=== PATIENT | male | born 2000 | race African-American/Black ===

== ENCOUNTER 2023-02-13 17:10 | Inpatient (IN) | payer OTHER ==
[2023-02-13 18:06] VITALS: BMI 22.9
[2023-02-13] MEDS ORDERED: DICYCLOMINE HCL 10 MG CAPSULE PO PRN (20:00)
[2023-02-13] MEDS ORDERED: BENZONATATE 200 MG CAPSULE PO PRN (20:00)
[2023-02-13] MEDS ORDERED: MAGNESIUM HYDROX 2400MG/30ML ORAL SUSPENSION 30 ML CUP PO PRN (20:00)
[2023-02-13] MEDS ORDERED: methaDONE HCL 10 MG TABLET (FOR DETOX USE ONLY) PO ONE (20:00)
[2023-02-13] MEDS ORDERED: guaiFENesin 600 MG TABLET.ER (FP) PO PRN (20:00)
[2023-02-13] MEDS ORDERED: BISMUTH SUBSALICYLATE 524 MG/30 ML PO PRN (20:00)
[2023-02-13] MEDS ORDERED: IBUPROFEN 400 MG TABLET (FP) PO PRN (20:00)
[2023-02-13] MEDS ORDERED: LOPERAMIDE HCL 2 MG CAPSULE PO PRN (20:00)
[2023-02-13] MEDS ORDERED: MAG HYDROX/AL HYDROX/SIMETH 30 ML UNIT-DOSE CUP PO PRN (20:00)
[2023-02-13] MEDS ORDERED: NALOXONE HCL (KLOXXADO) 8 MG SPRAY NS PRN (20:00)
[2023-02-13] MEDS ORDERED: BENZOCAINE/MENTHOL (CHLORASEPTIC ) LOZENGE MM PRN (20:00)
[2023-02-13] MEDS ORDERED: ONDANSETRON *ODT* 4 MG TABLET SL PRN (20:00)
[2023-02-13] MEDS ORDERED: POLYETHYLENE GLYCOL (HEALTHYLAX) 3350 17 GM PACKET PO PRN (20:00)
[2023-02-13] MEDS ORDERED: NALOXONE HCL 0.4 MG/ML VIAL IM PRN (20:00)
[2023-02-14] MEDS ORDERED: IBUPROFEN 600 MG TABLET (FP) PO ONE (00:19)
[2023-02-14] MEDS: IBUPROFEN 600 MG TABLET (FP) PO PRN ×2 (00:21→19:12)
[2023-02-14] MEDS: MELATONIN 5 MG TABLETS PO SCH ×2 (02:48→22:14)
[2023-02-14] MEDS: THIAMINE HCL 100 MG TABLET (FP) PO SCH ×2 (02:49→22:14)
[2023-02-14] MEDS: cloNIDine HCL 0.1 MG TABLET PO PRN ×2 (02:54→22:16)
[2023-02-14] MEDS: METHOCARBAMOL 500 MG TABLET PO PRN ×2 (02:54→19:12)
[2023-02-14] MEDS: NICOTINE 14 MG/24 HOURS TOPICAL PATCH TD SCH (10:13)
[2023-02-14] MEDS: PRENATAL VITAMINS W/ FOLIC ACID TABLET (FP) PO SCH (10:13)
[2023-02-14] MEDS: ACETAMINOPHEN 325 MG TABLET (FP) PO PRN ×2 (10:14→22:16)
[2023-02-14 11:06] LABS: HEMATOCRIT 34.6 % (35.4-49); HEMOGLOBIN 11.7 GM/dL (11.7-16.9); MCH 30.6 pg (25.7-33.7); MCHC 33.9 g/dl (32.0-35.9); MEAN CELL VOLUME 90.5 fl (80-96); MEAN PLT VOLUME 8.1 fl (7.5-11.1); PLATELET COUNT 357 10^3/uL (134-434); RBC 3.82 M/mm3 (4.00-5.60); RDW 13.7 % (11.9-15.9); WHITE BLOOD COUNT 9.7 K/mm3 (4.0-10.0)
[2023-02-14 11:13] LABS: POTASSIUM 4.3 mmol/L (3.5-5.1)
[2023-02-14 11:25] LABS: BLOOD UREA NITROGEN 8.6 mg/dL (7-18)
[2023-02-14 11:26] LABS: BILIRUBIN,TOTAL 0.2 mg/dL (0.2-1); CALCIUM 8.5 mg/dL (8.5-10.1); CREATININE 0.7 mg/dL (0.55-1.3)
[2023-02-14 11:27] LABS: TOT PROT 6.2 g/dl (6.4-8.2)
[2023-02-14 12:13] LABS: HIV INTERPRETATION NEGATIVE (NEGATIVE)
[2023-02-14] MEDS: NICOTINE POLACRILEX 2 MG GUM BUC PRN (22:17)
[2023-02-15] MEDS ORDERED: methaDONE HCL 10 MG TABLET (FOR DETOX USE ONLY) PO ONE (10:00)
[2023-02-15] MEDS: NICOTINE 14 MG/24 HOURS TOPICAL PATCH TD SCH (10:25)
[2023-02-15] MEDS: PRENATAL VITAMINS W/ FOLIC ACID TABLET (FP) PO SCH (10:28)
[2023-02-15] MEDS: METHOCARBAMOL 500 MG TABLET PO PRN ×2 (10:28→17:47)
[2023-02-15] MEDS: IBUPROFEN 600 MG TABLET (FP) PO PRN (10:28)
[2023-02-15] MEDS: LIDOCAINE 5% TOPICAL PATCH TP SCH (12:39)
[2023-02-15] MEDS: NICOTINE POLACRILEX 2 MG GUM BUC PRN ×2 (12:46→17:50)
[2023-02-15] MEDS: diazePAM 5 MG TABLET PO PRN ×2 (17:46→22:16)
[2023-02-15] MEDS: ACETAMINOPHEN 325 MG TABLET (FP) PO PRN (17:47)
[2023-02-15] MEDS: MELATONIN 5 MG TABLETS PO SCH (22:13)
[2023-02-15] MEDS: LIDOCAINE PATCH REMOVAL MC SCH (22:14)
[2023-02-15] MEDS: THIAMINE HCL 100 MG TABLET (FP) PO SCH (22:14)
[2023-02-15] MEDS: cloNIDine HCL 0.1 MG TABLET PO PRN (23:18)
[2023-02-16] MEDS: IBUPROFEN 600 MG TABLET (FP) PO PRN ×2 (05:48→17:23)
[2023-02-16] MEDS: PRENATAL VITAMINS W/ FOLIC ACID TABLET (FP) PO SCH (10:36)
[2023-02-16] MEDS: ACETAMINOPHEN 325 MG TABLET (FP) PO PRN ×2 (10:38→22:12)
[2023-02-16] MEDS: LIDOCAINE 5% TOPICAL PATCH TP SCH (10:38)
[2023-02-16] MEDS: NICOTINE 14 MG/24 HOURS TOPICAL PATCH TD SCH (10:48)
[2023-02-16] MEDS: diazePAM 5 MG TABLET PO PRN ×2 (13:50→22:11)
[2023-02-16] MEDS: NICOTINE POLACRILEX 2 MG GUM BUC PRN (15:19)
[2023-02-16] MEDS: METHOCARBAMOL 500 MG TABLET PO PRN (17:24)
[2023-02-16] MEDS: MELATONIN 5 MG TABLETS PO SCH (22:12)
[2023-02-16] MEDS: LIDOCAINE PATCH REMOVAL MC SCH (22:14)
[2023-02-16] MEDS: THIAMINE HCL 100 MG TABLET (FP) PO SCH (22:14)
[2023-02-17] MEDS: IBUPROFEN 600 MG TABLET (FP) PO PRN ×2 (05:17→15:29)
[2023-02-17] MEDS: METHOCARBAMOL 500 MG TABLET PO PRN ×3 (05:18→22:12)
[2023-02-17] MEDS ORDERED: methaDONE HCL 10 MG TABLET (FOR DETOX USE ONLY) PO ONE (10:00)
[2023-02-17] MEDS: PRENATAL VITAMINS W/ FOLIC ACID TABLET (FP) PO SCH (10:24)
[2023-02-17] MEDS: ACETAMINOPHEN 325 MG TABLET (FP) PO PRN ×2 (10:24→22:12)
[2023-02-17] MEDS: LIDOCAINE 5% TOPICAL PATCH TP SCH (10:26)
[2023-02-17] MEDS: NICOTINE 14 MG/24 HOURS TOPICAL PATCH TD SCH (10:26)
[2023-02-17] MEDS: NICOTINE POLACRILEX 2 MG GUM BUC PRN (15:30)
[2023-02-17] MEDS: LIDOCAINE PATCH REMOVAL MC SCH (22:10)
[2023-02-17] MEDS: THIAMINE HCL 100 MG TABLET (FP) PO SCH (22:12)
[2023-02-17] MEDS: MELATONIN 5 MG TABLETS PO SCH (22:12)
[2023-02-18] MEDS: IBUPROFEN 600 MG TABLET (FP) PO PRN (06:01)
[2023-02-18] MEDS: diazePAM 5 MG TABLET PO PRN (06:03)
[2023-02-18] MEDS: METHOCARBAMOL 500 MG TABLET PO PRN (06:05)
[2023-02-18 09:36] VITALS: BP 118/60; PULSE 68; RESP 17; TEMP 98.1
[2023-02-18] MEDS: PRENATAL VITAMINS W/ FOLIC ACID TABLET (FP) PO SCH (10:22)
[2023-02-18] MEDS: LIDOCAINE 5% TOPICAL PATCH TP SCH (10:22)
[2023-02-18] MEDS: ACETAMINOPHEN 325 MG TABLET (FP) PO PRN (10:23)
[2023-02-18] MEDS: NICOTINE 14 MG/24 HOURS TOPICAL PATCH TD SCH (10:26)
== END 2023-02-18 12:26 | disposition home or self-care (01) | DRG 773 ==
LOC: YASAS 17:10 → Y6N 02-14 01:47
PROVIDERS: ADMIT Allergy & Immunology; ATTEND Allergy & Immunology
PROC: HZ2ZZZZ Detoxification Services for Substance Abuse Treatment (ICD-10-PCS; principal; 2023-02-14)
DX: F11.23 Opioid dependence with withdrawal (principal); F14.20 Cocaine dependence, uncomplicated; F17.210 Nicotine dependence, cigarettes, uncomplicated; F43.10 Post-traumatic stress disorder, unspecified; F32.A Depression, unspecified; F41.9 Anxiety disorder, unspecified; Z56.0 Unemployment, unspecified; Z59.00 Homelessness unspecified
CPT/HCPCS: 36415; 80053; 85027; 86780; 87389; 93005; 93010; C9803-CS; U0003; U0005

== ENCOUNTER 2023-08-16 18:18 | Inpatient (IN) | payer OTHER ==
[2023-08-16 20:04] VITALS: RESP 17; BMI 22.1
[2023-08-16] MEDS ORDERED: METHOCARBAMOL 500 MG TABLET PO PRN (21:03)
[2023-08-16] MEDS ORDERED: NICOTINE POLACRILEX 2 MG GUM BUC PRN (21:03)
[2023-08-16] MEDS ORDERED: BENZOCAINE/MENTHOL (CHLORASEPTIC ) LOZENGE MM PRN (21:03)
[2023-08-16] MEDS ORDERED: IBUPROFEN 400 MG TABLET (FP) PO PRN (21:03)
[2023-08-16] MEDS ORDERED: P-EPHED 60MG/TRIPROLIDI 2.5MG TABLET PO PRN (21:03)
[2023-08-16] MEDS ORDERED: hydrOXYzine PAMOATE 25 MG CAPSULE (FP) PO PRN (21:03)
[2023-08-16] MEDS ORDERED: guaiFENesin 600 MG TABLET.ER (FP) PO PRN (21:03)
[2023-08-16] MEDS ORDERED: NALOXONE HCL (KLOXXADO) 8 MG SPRAY NS PRN (21:03)
[2023-08-16] MEDS ORDERED: ONDANSETRON *ODT* 4 MG TABLET SL PRN (21:03)
[2023-08-16] MEDS ORDERED: IBUPROFEN 600 MG TABLET (FP) PO PRN (21:03)
[2023-08-16] MEDS ORDERED: POLYETHYLENE GLYCOL (HEALTHYLAX) 3350 17 GM PACKET PO PRN (21:03)
[2023-08-16] MEDS ORDERED: BISMUTH SUBSALICYLATE 524 MG/30 ML PO PRN (21:03)
[2023-08-16] MEDS ORDERED: DICYCLOMINE HCL 10 MG CAPSULE PO PRN (21:03)
[2023-08-16] MEDS ORDERED: MAGNESIUM HYDROX 2400MG/30ML ORAL SUSPENSION 30 ML CUP PO PRN (21:03)
[2023-08-16] MEDS ORDERED: LOPERAMIDE HCL 2 MG CAPSULE PO PRN (21:03)
[2023-08-16] MEDS ORDERED: ACETAMINOPHEN 325 MG TABLET (FP) PO PRN (21:03)
[2023-08-16] MEDS ORDERED: MAG HYDROX/AL HYDROX/SIMETH 30 ML UNIT-DOSE CUP PO PRN (21:03)
[2023-08-16] MEDS ORDERED: BENZONATATE 200 MG CAPSULE PO PRN (21:03)
[2023-08-16] MEDS ORDERED: NALOXONE HCL 0.4 MG/ML VIAL IM PRN (21:03)
[2023-08-16] MEDS ORDERED: MELATONIN 5 MG TABLETS PO SCH (22:00)
[2023-08-16] MEDS ORDERED: THIAMINE HCL 100 MG TABLET (FP) PO SCH (22:00)
[2023-08-16 22:41] VITALS: BP 121/93; PULSE 62; TEMP 96.9
[2023-08-17] MEDS ORDERED: LORazepam 2 MG/ML SDV VIAL IM ONE
[2023-08-17] MEDS ORDERED: PRENATAL VITAMINS W/ FOLIC ACID TABLET (FP) PO SCH (10:00)
== END 2023-08-16 22:53 | disposition short-term general hospital (02) | DRG 773 ==
LOC: YASAS 18:18 → Y6N 22:17
PROVIDERS: ADMIT Allergy & Immunology; ATTEND Surgery
PROC: HZ2ZZZZ Detoxification Services for Substance Abuse Treatment (ICD-10-PCS; principal; 2023-08-16)
DX: F11.20 Opioid dependence, uncomplicated (principal); F14.20 Cocaine dependence, uncomplicated; F15.20 Other stimulant dependence, uncomplicated; F17.210 Nicotine dependence, cigarettes, uncomplicated; F41.9 Anxiety disorder, unspecified; F32.A Depression, unspecified
CPT/HCPCS: 87635

== ENCOUNTER 2025-06-19 14:26 | Inpatient (IN) | payer OTHER ==
[2025-06-19 15:05] VITALS: BMI 25.5
[2025-06-19] MEDS ORDERED: POLYETHYLENE GLYCOL (HEALTHYLAX) 3350 17 GM PACKET PO PRN (15:19)
[2025-06-19] MEDS ORDERED: IBUPROFEN 400 MG TABLET (FP) PO PRN (15:19)
[2025-06-19] MEDS ORDERED: MAGNESIUM HYDROX 2400MG/30ML ORAL SUSPENSION 30 ML CUP PO PRN (15:19)
[2025-06-19] MEDS ORDERED: LOPERAMIDE HCL 2 MG CAPSULE PO PRN (15:19)
[2025-06-19] MEDS ORDERED: ACETAMINOPHEN 325 MG TABLET (FP) PO PRN (15:19)
[2025-06-19] MEDS ORDERED: NICOTINE POLACRILEX 2 MG LOZENGE BC PRN (15:19)
[2025-06-19] MEDS ORDERED: ONDANSETRON *ODT* 4 MG TABLET SL PRN (15:19)
[2025-06-19] MEDS ORDERED: NALOXONE (NARCAN) HCL 4 MG/0.1 ML SPRAY NS PRN (15:19)
[2025-06-19] MEDS ORDERED: BENZOCAINE/MENTHOL (CHLORASEPTIC ) LOZENGE MM PRN (15:19)
[2025-06-19] MEDS ORDERED: BENZONATATE 200 MG CAPSULE PO PRN (15:19)
[2025-06-19] MEDS ORDERED: BISMUTH SUBSALICYLATE 524 MG/30 ML PO PRN (15:19)
[2025-06-19] MEDS ORDERED: NICOTINE POLACRILEX 2 MG GUM BUC PRN (15:19)
[2025-06-19] MEDS ORDERED: guaiFENesin 600 MG TABLET.ER (FP) PO PRN (15:19)
[2025-06-19] MEDS ORDERED: DICYCLOMINE HCL 10 MG CAPSULE PO PRN (15:19)
[2025-06-19] MEDS ORDERED: LORazepam 2 MG/ML SDV VIAL ONE (18:03)
[2025-06-19] MEDS: levETIRAcetam 500 MG TABLET (FP) PO ONE (18:11)
[2025-06-19] MEDS: LORazepam 2 MG/ML SDV VIAL IM ONE (18:34)
[2025-06-19] MEDS: hydrOXYzine PAMOATE 25 MG CAPSULE (FP) PO PRN (23:06)
[2025-06-19] MEDS: METHOCARBAMOL 500 MG TABLET PO PRN (23:06)
[2025-06-19] MEDS: levETIRAcetam 500 MG TABLET (FP) PO SCH (23:06)
[2025-06-19] MEDS: THIAMINE 100 MG TABLET PO SCH (23:06)
[2025-06-19] MEDS: MELATONIN 5 MG TABLETS PO SCH (23:07)
[2025-06-20] MEDS: PRENATAL VITAMINS W/ FOLIC ACID TABLET (FP) PO SCH (10:03)
[2025-06-20] MEDS ORDERED: ALBUTEROL SO4 HFA INHALER IH PRN (10:55)
[2025-06-20 11:09] LABS: MCHC 32.4 g/dl (32.3-36.5); MEAN CELL VOLUME 88.6 fl (79.0-92.2); MEAN PLT VOLUME 9.8 fl (9.4-12.4); RDW 16.4 % (11.9-15.3)
[2025-06-20 11:10] LABS: GLUCOSE,RANDOM 73 mg/dL (74-106); TOT PROT 7.4 g/dl (6.4-8.2)
[2025-06-20 11:11] LABS: CO2 24 mmol/L (21-32)
[2025-06-20 11:16] LABS: CREATININE 0.69 mg/dL (0.55-1.3); SGOT/AST 98 U/L (5-34); SGPT/ALT 38 U/L (0-55)
[2025-06-20 11:24] LABS: ALK PHOS 81 U/L (40-150)
[2025-06-20 11:36] LABS: HIV INTERPRETATION NEGATIVE (NEGATIVE)
[2025-06-20 11:37] LABS: HCV DIAGNOSTIC IN-HOUSE W/RFLX REACTIVE (NONREACTIVE)
[2025-06-21] MEDS: CALCIUM 500MG/VIT-D 200 UNITS COMBO TABLET (FP) PO SCH (09:29)
[2025-06-21] MEDS: IBUPROFEN 600 MG TABLET (FP) PO PRN (14:25)
[2025-06-21] MEDS: MAG HYDROX/AL HYDROX/SIMETH 30 ML UNIT-DOSE CUP PO PRN (17:11)
[2025-06-22] MEDS: PANTOPRAZOLE 40 MG TABLET PO SCH (10:39)
[2025-06-23] MEDS ORDERED: MINERAL OIL/PET HY-PHL TOPICAL OINTMENT 454 GM JAR TP SCH (14:35)
[2025-06-23] MEDS: PETROLATUM,WHITE OINTMENT 3.5 OZ JAR TP SCH (21:47)
[2025-06-24] MEDS ORDERED: HYDROCORTISONE 1% TOPICAL CREAM 30 GM TUBE TP PRN (10:39)
[2025-06-24] MEDS: diphenhydrAMINE HCL 25 MG CAPSULE (FP) PO ONE (11:26)
[2025-06-24] MEDS: levETIRAcetam 500 MG TABLET (FP) PO ONE (14:08)
[2025-06-24 16:56] VITALS: BP 115/61; PULSE 60; RESP 18; TEMP 96.9
== END 2025-06-24 18:47 | disposition short-term general hospital (02) | DRG 773 ==
LOC: YASAS 14:26 → Y6N 18:18 → Y3N 06-22 20:19
PROVIDERS: ADMIT Neuromusculoskeletal Medicine & OMM; ATTEND Student in an Organized Health Care Education/Training Program
PROC: HZ2ZZZZ Detoxification Services for Substance Abuse Treatment (ICD-10-PCS; principal; 2025-06-19)
DX: F11.23 Opioid dependence with withdrawal (principal); F15.20 Other stimulant dependence, uncomplicated; F17.210 Nicotine dependence, cigarettes, uncomplicated; F19.282 Other psychoactive substance dependence with psychoactive substance-induced sleep disorder; F23 Brief psychotic disorder; F43.10 Post-traumatic stress disorder, unspecified; G40.909 Epilepsy, unspecified, not intractable, without status epilepticus; B18.2 Chronic viral hepatitis C; K21.9 Gastro-esophageal reflux disease without esophagitis
CPT/HCPCS: 36415; 80053; 80305; 80307; 85027; 86780; 86803; 87389; 87522; 93005; 93010